=== PATIENT | male | born 1970 | race Caucasian/White ===

== ENCOUNTER 2017-07-29 17:57 | Observation (INO) | payer BC ==
[2017-07-29] MEDS ORDERED: Aspirin Low Dose CHEW TAB* 81 MG PO ONE (18:36)
[2017-07-29] MEDS: NS 0.9% 1000 ML* 1,000 ML IV SCH ×2 (18:49→23:15)
[2017-07-29 19:05] LABS: Hematocrit 46 % (42-52); Hemoglobin 15.8 g/dl (14.0-18.0); Mean Corpuscular HGB Conc 35 g/dl (31-36); Mean Corpuscular Hemoglobin 32 pg (27-31); Mean Corpuscular Volume 91 fL (80-94); Mean Platelet Volume 9 um3 (7.4-10.4); Red Blood Count 5.03 10^6/ul (4.0-5.4); Red Cell Distribution Width 13 % (10.5-15); White Blood Count 6.1 10^3/ul (3.5-10.8)
[2017-07-29 19:22] LABS: ALT 41 U/L (7-52); AST 41 U/L (13-39); Albumin 4.7 g/dL (3.2-5.2); Alkaline Phosphatase 53 U/L (34-104); Anion Gap 6 mmol/L (2-11); BUN/Creatinine Ratio 15.9 (8-20); Blood Urea Nitrogen 20 mg/dL (6-24); C Reactive Protein < 1.00 mg/L (< 5.00); CO2 Carbon Dioxide 28 mmol/L (22-32); Calcium 9.8 mg/dL (8.6-10.3); Chloride 104 mmol/L (101-111); Creatine Kinase 772 U/L (10-223); EGFR Non-African American 62.2 (>60); Globulin 2.7 g/dL (2-4); Glucose 107 mg/dL (70-100); Lipase 46 U/L (11.0-82.0); Magnesium 2.2 mg/dL (1.9-2.7); Potassium 3.7 mmol/L (3.5-5.0); Sodium 138 mmol/L (133-145); Total Protein 7.4 g/dL (6.4-8.9)
--- NOTE | 2017-07-29 19:23 | RAD ---
Indication: Chest pain radiating down the LEFT arm. Comparison: No relevant prior exams available [place] the [facility] [place] for comparison. Technique: Upright AP 1846 hours Report: Clear lungs and pleural spaces. Negative for pneumothorax. The heart, pulmonary vasculature, and mediastinal contours are unremarkable. Unremarkable osseous structures and soft tissue contours. IMPRESSION: No evidence for acute intrathoracic disease.
[2017-07-29 19:59] LABS: TSH (Thyroid Stimulating Horm) 2.82 mcIU/mL (0.34-5.60)
[2017-07-29] MEDS ORDERED: Acetaminophen TAB* 325 MG PO PRN (21:18)
[2017-07-29] MEDS ORDERED: Ibuprofen TAB* 400 MG PO PRN (21:18)
--- NOTE | 2017-07-29 22:48 | ED ---
Cristopher Faria Alfonso, scribed for Dustin Arreola MD on 07/29/17 at 1852 . HPI Chest Pain - HPI Summary HPI Summary: This patient is a 46 year old M presenting to [facility] with a chief complaint of intermittent few second episodes of CP which began while at rest at 1630 today. The CP radiates to his axilla and jaw. The patient rates the sharp pain 5/10 in severity. Patient reports lightheadedness, cough, and chest congestion. Patient denies SOB, nausea, diaphoresis, calf swelling, and calf pain. - History of Current Complaint Chief Complaint: EDChestPainROMI Time Seen by Provider: 07/29/17 18:26 Hx Obtained From: Patient Onset/Duration: Still Present Timing: Intermittent, Lasting Seconds Current Severity: Moderate Pain Intensity: 5 Pain Scale Used: 0-10 Numeric Chest Pain Radiates: Yes Chest Pain Radiates To:: Jaw, Other - axilla Character: Sharp/Stabbing Associated Signs and Symptoms: Positive: Other: - lightheadedness, cough, and chest congestion. Patient denies SOB, nausea, diaphoresis, calf swelling, and calf pain. - Allergy/Home Medications Allergies/Adverse Reactions: Allergies Allergy/AdvReac Type Severity Reaction Status Date / Time Penicillins Allergy Unknown unknown- Verified 11/08/12 12:09 as a child PMH/Surg Hx/FS Hx/Imm Hx Endocrine/Hematology History: Denies: Hx Diabetes, Hx Thyroid Disease Cardiovascular History: Denies: Hx Hypertension Respiratory History: Denies: Hx Asthma, Hx Chronic Obstructive Pulmonary Disease (COPD) GI History: Denies: Hx Ulcer Opthamlomology History: Denies: Hx Legally Blind EENT History: Denies: Hx Deafness - Surgical History Surgery Procedure, Year, and Place: Tonsilectomy Infectious Disease History: No Infectious Disease History: Denies: Hx Hepatitis, Hx Human Immunodeficiency Virus (HIV), Traveled Outside the [place] in Last 30 Days - Family History Known Family History: Positive: Cardiac Disease - Social History Alcohol Use: None Substance Use Type: Reports: None Smoking Status (MU): Never Smoked Tobacco Type: Cigarettes Amount Used/How Often: 1 ppd Length of Time of Smoking/Using Tobacco: 11 years Have You Smoked in the Last Year: No Review of Systems Negative: Skin Diaphoresis Positive: Chest Pain Positive: Cough, Other - chest congestion. Negative: Shortness Of Breath Negative: Nausea Positive: Other - Negative calf pain. Negative: Edema Neurological: Other - lightheadedness All Other Systems Reviewed And Are Negative: Yes Physical Exam - Summary Physical Exam Summary: General: well-appearing, no pain distress Skin: warm, color reflects adequate perfusion, dry Head: normal Eyes: EOMI, COBY ENT: normal Neck: supple, nontender Respiratory: CTA, breath sounds present Cardiovascular: RRR Abdomen: soft, nontender Bowel: present Musculoskeletal: normal, strength/ROM intact Neurological: normal, sensory/motor intact, A&O x3 Psychological: affect/mood appropriate Triage Information Reviewed: Yes Vital Signs On Initial Exam: Initial Vitals Temp Pulse Resp BP Pulse Ox 98.1 F 80 18 133/79 100 07/29/17 18:05 07/29/17 18:05 07/29/17 18:05 07/29/17 18:05 07/29/17 18:05 Vital Signs Reviewed: Yes - Michael Coma Scale Coma Scale Total: 15 Diagnostics - Vital Signs Vital Signs Temp Pulse Resp BP Pulse Ox 07/29/17 18:05 98.1 F 80 18 133/79 100 - Laboratory Lab Results: Lab Results 07/29/17 07/29/17 07/29/17 Range/Units 18:54 18:54 18:54 WBC (3.5-10.8) 10^3/ul RBC (4.0-5.4) 10^6/ul Hgb (14.0-18.0) g/dl Hct (42-52) % MCV (80-94) fL MCH (27-31) pg MCHC (31-36) g/dl RDW (10.5-15) % Plt Count (150-450) 10^3/ul MPV (7.4-10.4) um3 Neut % (Auto) (38-83) % Lymph % (Auto) (25-47) % Dawes % (Auto) (1-9) % Eos % (Auto) (0-6) % Baso % (Auto) (0-2) % Absolute Neuts (auto) (1.5-7.7) 10^3/ul Absolute Lymphs (auto) (1.0-4.8) 10^3/ul Absolute Monos (auto) (0-0.8) 10^3/ul Absolute Eos (auto) (0-0.6) 10^3/ul Absolute Basos (auto) (0-0.2) 10^3/ul Absolute Nucleated RBC 10^3/ul Nucleated RBC % INR (Anticoag Therapy) 0.95 (0.89-1.11) APTT 32.2 (26.0-36.3) seconds D-Dimer, Quantitative < 200 (Less Than 230) ng/mL Sodium 138 (133-145) mmol/L Potassium 3.7 (3.5-5.0) mmol/L Chloride 104 (101-111) mmol/L Carbon Dioxide 28 (22-32) mmol/L Anion Gap 6 (2-11) mmol/L BUN 20 (6-24) mg/dL Creatinine 1.26 H (0.67-1.17) mg/dL Est GFR ( Amer) 80.0 (>60) Est GFR (Non-Af Amer) 62.2 (>60) BUN/Creatinine Ratio 15.9 (8-20) Glucose 107 H (70-100) mg/dL Lactic Acid (0.5-2.0) mmol/L Calcium 9.8 (8.6-10.3) mg/dL Magnesium 2.2 (1.9-2.7) mg/dL Total Bilirubin 0.70 (0.2-1.0) mg/dL AST 41 H (13-39) U/L ALT 41 (7-52) U/L Alkaline Phosphatase 53 (34-104) U/L Total Creatine Kinase 772 H (10-223) U/L CK-MB (CK-2) 6.7 H (0.6-6.3) ng/mL Troponin I 0.00 (<0.04) ng/mL C-Reactive Protein < 1.00 (< 5.00) mg/L B-Natriuretic Peptide 9 ( - 100) pg/mL Total Protein 7.4 (6.4-8.9) g/dL Albumin 4.7 (3.2-5.2) g/dL Globulin 2.7 (2-4) g/dL Albumin/Globulin Ratio 1.7 (1-3) Lipase 46 (11.0-82.0) U/L TSH 2.82 (0.34-5.60) mcIU/mL 07/29/17 07/29/17 Range/Units 18:54 18:54 WBC 6.1 (3.5-10.8) 10^3/ul RBC 5.03 (4.0-5.4) 10^6/ul Hgb 15.8 (14.0-18.0) g/dl Hct 46 (42-52) % MCV 91 (80-94) fL MCH 32 H (27-31) pg MCHC 35 (31-36) g/dl RDW 13 (10.5-15) % Plt Count 184 (150-450) 10^3/ul MPV 9 (7.4-10.4) um3 Neut % (Auto) 61.2 (38-83) % Lymph % (Auto) 30.3 (25-47) % Dawes % (Auto) 6.2 (1-9) % Eos % (Auto) 1.5 (0-6) % Baso % (Auto) 0.8 (0-2) % Absolute Neuts (auto) 3.7 (1.5-7.7) 10^3/ul Absolute Lymphs (auto) 1.8 (1.0-4.8) 10^3/ul Absolute Monos (auto) 0.4 (0-0.8) 10^3/ul Absolute Eos (auto) 0.1 (0-0.6) 10^3/ul Absolute Basos (auto) 0 (0-0.2) 10^3/ul Absolute Nucleated RBC 0.01 10^3/ul Nucleated RBC % 0.1 INR (Anticoag Therapy) (0.89-1.11) APTT (26.0-36.3) seconds D-Dimer, Quantitative (Less Than 230) ng/mL Sodium (133-145) mmol/L Potassium (3.5-5.0) mmol/L Chloride (101-111) mmol/L Carbon Dioxide (22-32) mmol/L Anion Gap (2-11) mmol/L BUN (6-24) mg/dL Creatinine (0.67-1.17) mg/dL Est GFR ( Amer) (>60) Est GFR (Non-Af Amer) (>60) BUN/Creatinine Ratio (8-20) Glucose (70-100) mg/dL Lactic Acid 1.1 (0.5-2.0) mmol/L Calcium (8.6-10.3) mg/dL Magnesium (1.9-2.7) mg/dL Total Bilirubin (0.2-1.0) mg/dL AST (13-39) U/L ALT (7-52) U/L Alkaline Phosphatase (34-104) U/L Total Creatine Kinase (10-223) U/L CK-MB (CK-2) (0.6-6.3) ng/mL Troponin I (<0.04) ng/mL C-Reactive Protein (< 5.00) mg/L B-Natriuretic Peptide ( - 100) pg/mL Total Protein (6.4-8.9) g/dL Albumin (3.2-5.2) g/dL Globulin (2-4) g/dL Albumin/Globulin Ratio (1-3) Lipase (11.0-82.0) U/L TSH (0.34-5.60) mcIU/mL Result Diagrams: 07/29/17 18:54 07/29/17 18:54 Lab Statement: Any lab studies that have been ordered have been reviewed, and results considered in the medical decision making process. - Radiology CXR Radiology Interpretation Completed By: Radiologist - No evidence for acute intrathoracic disease. ED physician has reviewed this radiology report and agrees. - EKG 1817 Cardiac Rate: NL EKG Rhythm: Sinus Rhythm - BPM 83 Ectopy: None EKG Interpretation: ST elevation in V2 which is probably early repolarization Chest Pain Course/Dx - Course Course Of Treatment: ADMIT HOSPITALIST - Diagnoses Provider Diagnoses: Chest pain - Provider Notifications Discussed Care Of Patient With: Tammy David Time Discussed With Above Provider: 20:12 Instructed by Provider To: Other - Consulted Dr. David (hospitalist) who agrees to admit. Discharge - Discharge Plan Condition: Stable Disposition: ADMITTED TO [facility] documentation as recorded by the Cristopher gary Alfonso accurately reflects the service I personally performed and the decisions made by me, Dustin Arreola MD.
--- NOTE | 2017-07-30 03:23 | HP ---
CC: Dr. Barrios * HISTORY AND PHYSICAL: DATE OF ADMISSION: 07/29/17 PRIMARY CARE PROVIDER: Dr. Barrios. CHIEF COMPLAINT: Chest pain. HISTORY OF PRESENT ILLNESS: Mr. Spivey is a 46-year-old male with no significant past medical history who states that he went to the gym earlier on the day of admission where he did mostly cardio work and some pull-ups. He states approximately 2 hours after that at approximately at 4:30 p.m. he began to have sharp stabbing-like pain in the left side of his chest. He described these pains as being very short lived. He states for approximately 2 to 3 every hours , they were coming every 30 seconds or so. He does state in between the episodes of pain he was free of pain. The patient then began to feel as if face was flushed and some tension or tightness in his neck as well. Because of this, he then decided to present to the emergency room. The patient states that he continues to have these sharp pains; however, they are much less frequent at this point. He denies any associated shortness of breath, sweats, or nausea. PAST MEDICAL HISTORY: None. PAST SURGICAL HISTORY: None. MEDICATIONS: Zyrtec 10 mg p.o. daily. ALLERGIES: PENICILLIN. FAMILY HISTORY: Mom at the age 48 with breast cancer, dad's history is unknown. SOCIAL HISTORY: The patient is a lifelong smoker, does not drink alcohol. 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 He is . He has two children. His is his health care proxy. REVIEW OF SYSTEMS: A complete 11-system review of system is obtained. Pertinent positives and negatives are as per HPI and otherwise negative. In addition, the patient states that he has had some cough, and has felt congested recently. He does note that yesterday he went for a run and following the run it took longer for him to catch his breath after the run. PHYSICAL EXAMINATION GENERAL: The patient is a well-developed middle-aged male, sitting in the stretcher, in no acute distress. VITAL SIGNS: Blood pressure 132/88, pulse 79, respirations 16, temp 98.5, O2 sat 96% on room air. HEENT: Pupils are equal. They are round, they react to light. Extraocular muscles are intact. Oropharynx is clear. Oral mucosa is moist. There is no submandibular, cervical, or supraclavicular adenopathy. Thyroid is not enlarged. No thyroid nodules are noted. PULMONARY: Lungs are clear to auscultation bilaterally. CARDIAC: Normal S1, S2. Regular rate and rhythm. I do not appreciate any murmurs. There is no lower extremity edema and I cannot reproduce the patient' s pain on palpation of the left side of his chest. ABDOMEN: Bowel sounds present. Abdomen is soft, nontender, nondistended. MUSCULOSKELETAL: There is no cyanosis or clubbing in the digits. There is full active range of motion of all 4 extremities. NEURO: Cranial nerves II through are XII are grossly intact. Sensation is intact to light touch throughout. Strength is 5/5 and symmetric in both and upper and lower extremities bilaterally. PSYCH: The patient is alert. He is oriented x3. Affect appears appropriate. SKIN: Warm and dry. There are no rashes. DIAGNOSTIC STUDIES/LAB DATA: WBC 6.1, hemoglobin 15.8, hematocrit 46, platelets 184. INR is 0.95. D-dimer is less than 200. Sodium 138, potassium 3.7, chloride 104, CO2 of 28, BUN 20, creatinine 1.26, glucose 107, lactic acid 1.1, calcium 9.8, magnesium 2.2. Bilirubin 0.7, AST 41, ALT 41, alk phos 53, CPK 772, CK-MB 6.7, troponin 0, BMP 9, albumin 4.7, lipase 46, TSH 2.82. EKG revealed normal sinus rhythm with likely early repolarization. Chest x-ray , no evidence for acute intrathoracic disease. ASSESSMENT/PLAN: Mr. Spivey is a 46-year-old male, who has no significant past medical history, who presents to the emergency room with complaints of intermittent sharp chest pain after a workout at the gym and is being admitted for evaluation and monitoring. 1. Chest pain. The patient's story is not very convincing for cardiac chest pain. It seems very atypical. I suspect his pain is most likely musculoskeletal , however, I will admit the patient to rule him out with serial troponins and EKGs. He will be under observation status, monitored on telemetry. If he is ruled out, he will then undergo an exercise stress test. I do not think he needs any nuclear imaging at this point, however. 2. Elevated CPK. I suspect this represents mild rhabdomyolysis, likely related to his gym workout. I will get a followup CPK level tomorrow. 3. Elevated creatinine. I do not have a previous creatinine on the patient to determine if this is new or old. We will get a followup level tomorrow. He did receive 1 L of normal saline in the emergency room. 4. DVT prophylaxis. According to the Adult Thrombosis Prophylaxis Risk Factor Assessment Guide, the patient has a total risk factor score of 2 making him moderate risk. SCDs will be utilized when the patient is in bed, otherwise the ambulation would be utilized. 5. Code status is full and again the patient indicates that his is his health care proxy. TIME SPENT: Sixty five minutes was spent admitting this patient. [id number]/[facility] #: [id number] RAGHU
[2017-07-30] MEDS: NS 0.9% 1000 ML* 1,000 ML IV SCH (06:11)
[2017-07-30 07:30] VITALS: BP 121/69
--- NOTE | 2017-07-30 13:43 | DCNOTE ---
Objective Active Medications: Acetaminophen (Tylenol Tab*) 650 mg PO Q4H PRN PRN Reason: PAIN Sodium Chloride (Ns 0.9% 1000 Ml*) 1,000 mls @ 150 mls/hr IV PER RATE JENNIFER Last Admin: 07/30/17 06:11 Dose: 150 mls/hr Ibuprofen (Motrin Tab*) 400 mg PO Q6H PRN PRN Reason: PAIN Vital Signs 07/29/17 07/29/17 07/29/17 21:30 22:28 22:42 Temperature 98.5 F 97.2 F Pulse Rate 73 71 Respiratory 17 16 18 Rate Blood Pressure 138/82 134/75 (mmHg) O2 Sat by Pulse 96 97 Oximetry 07/29/17 07/30/17 07/30/17 23:36 03:36 07:17 Temperature 97.9 F 98.6 F 97.7 F Pulse Rate 68 66 69 Respiratory 20 20 16 Rate Blood Pressure 143/75 122/79 121/69 (mmHg) O2 Sat by Pulse 99 97 98 Oximetry Oxygen Devices in Use Now: None Result Diagrams: 07/29/17 18:54 07/29/17 18:54 Additional Lab and Data: Lab Results 07/29/17 07/29/17 07/29/17 Range/Units 18:54 18:54 18:54 WBC (3.5-10.8) 10^3/ul RBC (4.0-5.4) 10^6/ul Hgb (14.0-18.0) g/dl Hct (42-52) % MCV (80-94) fL MCH (27-31) pg MCHC (31-36) g/dl RDW (10.5-15) % Plt Count (150-450) 10^3/ul MPV (7.4-10.4) um3 Neut % (Auto) (38-83) % Lymph % (Auto) (25-47) % Nolan % (Auto) (1-9) % Eos % (Auto) (0-6) % Baso % (Auto) (0-2) % Absolute Neuts (auto) (1.5-7.7) 10^3/ul Absolute Lymphs (auto) (1.0-4.8) 10^3/ul Absolute Monos (auto) (0-0.8) 10^3/ul Absolute Eos (auto) (0-0.6) 10^3/ul Absolute Basos (auto) (0-0.2) 10^3/ul Absolute Nucleated RBC 10^3/ul Nucleated RBC % INR (Anticoag Therapy) 0.95 (0.89-1.11) APTT 32.2 (26.0-36.3) seconds D-Dimer, Quantitative < 200 (Less Than 230) ng/mL Sodium 138 (133-145) mmol/L Potassium 3.7 (3.5-5.0) mmol/L Chloride 104 (101-111) mmol/L Carbon Dioxide 28 (22-32) mmol/L Anion Gap 6 (2-11) mmol/L BUN 20 (6-24) mg/dL Creatinine 1.26 H (0.67-1.17) mg/dL Est GFR ( Amer) 80.0 (>60) Est GFR (Non-Af Amer) 62.2 (>60) BUN/Creatinine Ratio 15.9 (8-20) Glucose 107 H (70-100) mg/dL Lactic Acid (0.5-2.0) mmol/L Calcium 9.8 (8.6-10.3) mg/dL Magnesium 2.2 (1.9-2.7) mg/dL Total Bilirubin 0.70 (0.2-1.0) mg/dL AST 41 H (13-39) U/L ALT 41 (7-52) U/L Alkaline Phosphatase 53 (34-104) U/L Total Creatine Kinase 772 H (10-223) U/L CK-MB (CK-2) 6.7 H (0.6-6.3) ng/mL Troponin I 0.00 (<0.04) ng/mL C-Reactive Protein < 1.00 (< 5.00) mg/L B-Natriuretic Peptide 9 ( - 100) pg/mL Total Protein 7.4 (6.4-8.9) g/dL Albumin 4.7 (3.2-5.2) g/dL Globulin 2.7 (2-4) g/dL Albumin/Globulin Ratio 1.7 (1-3) Lipase 46 (11.0-82.0) U/L TSH 2.82 (0.34-5.60) mcIU/mL 07/29/17 07/29/17 Range/Units 18:54 18:54 WBC 6.1 (3.5-10.8) 10^3/ul RBC 5.03 (4.0-5.4) 10^6/ul Hgb 15.8 (14.0-18.0) g/dl Hct 46 (42-52) % MCV 91 (80-94) fL MCH 32 H (27-31) pg MCHC 35 (31-36) g/dl RDW 13 (10.5-15) % Plt Count 184 (150-450) 10^3/ul MPV 9 (7.4-10.4) um3 Neut % (Auto) 61.2 (38-83) % Lymph % (Auto) 30.3 (25-47) % Nolan % (Auto) 6.2 (1-9) % Eos % (Auto) 1.5 (0-6) % Baso % (Auto) 0.8 (0-2) % Absolute Neuts (auto) 3.7 (1.5-7.7) 10^3/ul Absolute Lymphs (auto) 1.8 (1.0-4.8) 10^3/ul Absolute Monos (auto) 0.4 (0-0.8) 10^3/ul Absolute Eos (auto) 0.1 (0-0.6) 10^3/ul Absolute Basos (auto) 0 (0-0.2) 10^3/ul Absolute Nucleated RBC 0.01 10^3/ul Nucleated RBC % 0.1 INR (Anticoag Therapy) (0.89-1.11) APTT (26.0-36.3) seconds D-Dimer, Quantitative (Less Than 230) ng/mL Sodium (133-145) mmol/L Potassium (3.5-5.0) mmol/L Chloride (101-111) mmol/L Carbon Dioxide (22-32) mmol/L Anion Gap (2-11) mmol/L BUN (6-24) mg/dL Creatinine (0.67-1.17) mg/dL Est GFR ( Amer) (>60) Est GFR (Non-Af Amer) (>60) BUN/Creatinine Ratio (8-20) Glucose (70-100) mg/dL Lactic Acid 1.1 (0.5-2.0) mmol/L Calcium (8.6-10.3) mg/dL Magnesium (1.9-2.7) mg/dL Total Bilirubin (0.2-1.0) mg/dL AST (13-39) U/L ALT (7-52) U/L Alkaline Phosphatase (34-104) U/L Total Creatine Kinase (10-223) U/L CK-MB (CK-2) (0.6-6.3) ng/mL Troponin I (<0.04) ng/mL C-Reactive Protein (< 5.00) mg/L B-Natriuretic Peptide ( - 100) pg/mL Total Protein (6.4-8.9) g/dL Albumin (3.2-5.2) g/dL Globulin (2-4) g/dL Albumin/Globulin Ratio (1-3) Lipase (11.0-82.0) U/L TSH (0.34-5.60) mcIU/mL Assess/Plan/Problems-Billing Assessment:
--- NOTE | 2017-07-31 06:05 | DS ---
CC: Dr. Barrios * DISCHARGE SUMMARY: DATE OF ADMISSION: DATE OF DISCHARGE: 07/30/17 HISTORY: This 46-year-old man presented with left-sided chest pain. He was working out in the gym, after he left the gym, he had sharp stabbing-like pains in the left side of his chest, lasted very brief, for 2 to 3 hours or so they came every 30 seconds or so. The rest of the history and physical exam are detailed in the admission note. I note he has never smoked. He was admitted to the telemetry unit. All his troponin levels were normal. His CK was little over 700, this was not repeated. He felt fine the next day. He had a little bit of pleuritic chest pain during the stress test. He had an exercise stress test without imaging. He achieved over 12 METs. There were no significant ST or T wave changes. He had an appropriate blood pressure response. FINAL DIAGNOSIS: Musculoskeletal chest pain. DISCHARGE MEDICATION: Cetirizine 10 mg daily. [id number]/[facility] #: [id number] RAGHU
== END 2017-07-30 14:52 | disposition home or self-care (01) ==
LOC: ED 17:57 → MEDTELE 21:15
PROVIDERS: ADMIT Hospitalist; ATTEND Internal Medicine
DX: R07.89 Other chest pain (principal); R94.4 Abnormal results of kidney function studies; Z88.0 Allergy status to penicillin; F17.210 Nicotine dependence, cigarettes, uncomplicated; R42 Dizziness and giddiness; R68.84 Jaw pain
CPT/HCPCS: 36415; 71010; 80053; 82550; 82553; 83605; 83690; 83735; 83880; 84443; 84484; 85025; 85379; 85610; 85730; 86140; 93005; 93017; 96360; 96361; 99284; A9270-GY; G0378

== ENCOUNTER 2023-12-04 13:36 | Inpatient (IN) ==
[2023-12-04 14:25] LABS: ABS Eosinophils 0.2 10^3/uL (0.0-0.5); ABS Lymphocytes 0.5 10^3/uL (1.0-4.8); ABS Monocytes 0.4 10^3/uL (0.0-1.1); ABS Neutrophils 8.7 10^3/uL (1.5-7.6); ABS Nucleated RBC 0.02 10^3/ul; Eosinophil % 1.5 %; Hematocrit 47.8 % (38-53); Hemoglobin 16.7 g/dL (13.2-16.3); Lymphocyte % 5.1 %; Mean Corpuscular Hemoglobin 31.5 pg (27-33); Mean Corpuscular Volume 89.9 fL (80-97); Mean Platelet Volume 8.2 fL (7.5-11.2); Nucleated Red Blood Cells % 0.2 %/100WBC (0.0-0.8); Platelet Count 218 10^3/uL (150-450); Red Blood Count 5.31 10^6/uL (4.06-5.63); Red Cell Distribution Width 13.5 % (12-17); White Blood Count 9.7 10^3/uL (3.6-10.2)
[2023-12-04] MEDS: Albuterol/Ipratropium NEB.SOL (2.5/0.5 MG) 3 ML NEB.SOLN INH ONE (14:53)
[2023-12-04 15:37] LABS: Albumin 4.9 g/dL (3.2-5.2); Albumin/Globulin Ratio 1.8 (1-3); C Reactive Protein 8.27 mg/L (<8.01); Calcium 9.5 mg/dL (8.6-10.3); Creatinine, Serum 0.86 mg/dL (0.67-1.17); Globulin 2.7 g/dL (2-4); Potassium 4.2 mmol/L (3.5-5.0); Total Bilirubin 0.9 mg/dL (0.2-1.0); Total Protein 7.6 g/dL (6.4-8.9); eGFR CKD-EPI 104.8 (>60)
[2023-12-04 15:45] LABS: High Sensitivity Troponin 1 Hr 4 pg/mL (<20)
[2023-12-04 16:06] LABS: Activated Partial Thrombo Time 30.6 seconds (26.0-38.0); INR 1.05 (0.83-1.13)
[2023-12-04] MEDS ORDERED: Ondansetron 4 mg VIAL 2 MG/ML 2 ml VIAL ONE (16:48)
[2023-12-04] MEDS: Iohexol 350 (CONTRAST) 500 ML MDV IV ONE (17:03)
[2023-12-04] MEDS: Ondansetron 4 mg VIAL 2 MG/ML 2 ml VIAL IV ONE ×2 (17:09→17:30)
[2023-12-04] MEDS ORDERED: EPINEPHrine Anaphylaxis SYR CERTADOSE SYR KIT ONE (17:43)
[2023-12-04] MEDS ORDERED: Albuterol/Ipratropium NEB.SOL (2.5/0.5 MG) 3 ML NEB.SOLN ONE (17:44)
[2023-12-04] MEDS: EPINEPHrine Anaphylaxis SYR CERTADOSE SYR KIT IM ONE (17:45)
[2023-12-04] MEDS ORDERED: Succinylcholine 200 mg VIAL 20 mg/ml 10 ml VIAL (200 mg) ONE (17:50)
[2023-12-04] MEDS ORDERED: Rocuronium 50 mg VIAL 10 mg/ml 5 ml VIAL (50 mg) ONE (17:50)
[2023-12-04] MEDS ORDERED: Albuterol 0.5% CONC CONTINUOUS NEB.SOL 5 mg/ml 20 ml BOT INH SCH (18:00)
[2023-12-04] MEDS ORDERED: Ondansetron 4 mg VIAL 2 MG/ML 2 ml VIAL IV PRN (18:26)
[2023-12-04 18:33] LABS: PCO2 Arterial 71 mmHg (35-45); PO2 Arterial 415 mmHg (80-100)
[2023-12-04] MEDS: Famotidine IV 10 MG/ML 2 ml VIAL (20 mg) IV SLOW PU ONE (18:34)
[2023-12-04] MEDS: methylPREDNISolone SOD SUCC 125 mg 2 ML VIAL IV ONE (18:34)
[2023-12-04] MEDS: Albuterol (2.5 MG) 0.5 % CONC 0.5 ML NEB.SOLN INH SCH (18:53)
[2023-12-04] MEDS ORDERED: Dextrose 50% Syringe 50 ml 25 GM/50 ML SYRINGE IV PUSH PRN (19:14)
[2023-12-04 19:23] LABS: TSH Ultra Thyroid Stim Horm 1.36 mcIU/mL (0.34-5.60)
[2023-12-04] MEDS ORDERED: EPINEPHrine Anaphylaxis SYR CERTADOSE SYR KIT IM PRN ×2 (19:23→20:07)
[2023-12-04 19:34] LABS: Folate 9.38 ng/mL (5.90-24.80)
[2023-12-04] MEDS: Albuterol/Ipratropium NEB.SOL (2.5/0.5 MG) 3 ML NEB.SOLN INH PRN (19:40)
[2023-12-04 20:00] LABS: Venous Bicarbonate HCO3 26.4 mmol/L (24-28)
[2023-12-04] MEDS ORDERED: Pantoprazole VIAL 40 MG VIAL IV SCH (20:00)
[2023-12-04] MEDS: EPINEPHrine Titratable IV 5 MG/250 mL IV SCH (20:01)
[2023-12-04] MEDS: EPINEPHrine 1 MG/ML MDV 5 MG in D5W 250 ml BAG 245 ML IV SCH (20:01)
[2023-12-04] MEDS: methylPREDNISolone SOD SUCC 40 mg/ml 1 ml VIAL IV SCH (20:18)
[2023-12-04] MEDS: Enoxaparin 40 MG/0.4 ML SYR SUBCUT SCH (20:18)
[2023-12-04] MEDS: Albuterol/Ipratropium NEB.SOL (2.5/0.5 MG) 3 ML NEB.SOLN INH SCH (20:24)
[2023-12-04] MEDS: Acetaminophen IV 1 GM/100ML 1,000 MG/100 ML BAG IV PRN (20:40)
[2023-12-05] MEDS: Albuterol (2.5 MG) 0.5 % CONC 0.5 ML NEB.SOLN INH SCH (01:13)
[2023-12-05 04:37] LABS: Venous Bicarbonate HCO3 28.7 mmol/L (24-28)
[2023-12-05 04:41] LABS: ABS Lymphocytes 0.6 10^3/uL (1.0-4.8); ABS Monocytes 0.1 10^3/uL (0.0-1.1); ABS Neutrophils 6.8 10^3/uL (1.5-7.6); ABS Nucleated RBC 0.02 10^3/ul; Eosinophil % 0.1 %; Hematocrit 44.3 % (38-53); Hemoglobin 15.6 g/dL (13.2-16.3); Lymphocyte % 7.5 %; Mean Corpuscular Hemoglobin 32.2 pg (27-33); Mean Corpuscular Hgb Conc 35.3 g/dL (31-36); Mean Corpuscular Volume 91.1 fL (80-97); Mean Platelet Volume 8.2 fL (7.5-11.2); Nucleated Red Blood Cells % 0.2 %/100WBC (0.0-0.8); Platelet Count 205 10^3/uL (150-450); Red Blood Count 4.86 10^6/uL (4.06-5.63); Red Cell Distribution Width 13.6 % (12-17); White Blood Count 7.4 10^3/uL (3.6-10.2)
[2023-12-05 05:32] LABS: Albumin 4.6 g/dL (3.2-5.2); Albumin/Globulin Ratio 1.9 (1-3); Calcium 9.3 mg/dL (8.6-10.3); Creatinine, Serum 0.99 mg/dL (0.67-1.17); Globulin 2.4 g/dL (2-4); Magnesium 2.1 mg/dL (1.9-2.7); Potassium 4.2 mmol/L (3.5-5.0); Total Bilirubin 0.8 mg/dL (0.2-1.0); eGFR CKD-EPI 92.2 (>60)
[2023-12-05] MEDS ORDERED: Albuterol 2.5mg/3 ml (0.083%) NEB.SOLN INH PRN (08:13)
[2023-12-05] MEDS: Pantoprazole VIAL 40 MG VIAL IV SCH (08:38)
[2023-12-05] MEDS: Albuterol/Ipratropium NEB.SOL (2.5/0.5 MG) 3 ML NEB.SOLN INH SCH (11:56)
[2023-12-05] MEDS ORDERED: Ondansetron ODT 4 mg TAB 4 MG TAB PO PRN (12:25)
[2023-12-06 04:53] LABS: ABS Basophils 0.1 10^3/uL (0.0-0.1); ABS Lymphocytes 0.6 10^3/uL (1.0-4.8); ABS Monocytes 0.7 10^3/uL (0.0-1.1); ABS Neutrophils 14.8 10^3/uL (1.5-7.6); ABS Nucleated RBC 0.01 10^3/ul; Hematocrit 43.4 % (38-53); Hemoglobin 15.1 g/dL (13.2-16.3); Lymphocyte % 3.9 %; Mean Corpuscular Hemoglobin 31.5 pg (27-33); Mean Corpuscular Hgb Conc 34.7 g/dL (31-36); Mean Corpuscular Volume 90.8 fL (80-97); Mean Platelet Volume 8.3 fL (7.5-11.2); Nucleated Red Blood Cells % 0.1 %/100WBC (0.0-0.8); Platelet Count 201 10^3/uL (150-450); Red Blood Count 4.78 10^6/uL (4.06-5.63); Red Cell Distribution Width 13.6 % (12-17); White Blood Count 16.3 10^3/uL (3.6-10.2)
[2023-12-06 05:36] LABS: Calcium 9.1 mg/dL (8.6-10.3); Creatinine, Serum 0.98 mg/dL (0.67-1.17); Magnesium 2.2 mg/dL (1.9-2.7); Potassium 4.4 mmol/L (3.5-5.0); eGFR CKD-EPI 93.4 (>60)
[2023-12-06 12:46] VITALS: BP 129/84
== END 2023-12-06 13:07 | disposition home or self-care (01) | DRG 133 ==
LOC: ED 13:36 → EDHOLD 17:55 → ICU 18:14
PROVIDERS: ADMIT Student in an Organized Health Care Education/Training Program; ATTEND Student in an Organized Health Care Education/Training Program